=== PATIENT | male | born 1965 | race Caucasian/White ===

== ENCOUNTER 2018-08-31 17:16 | Emergency (ER) | payer MEDICAID ==
[~2018-08-31] VITALS: Ht 185.4 cm; Wt 98.3 kg
[2018-08-31 17:19] VITALS: BP 168/90
[2018-08-31] MEDS ORDERED: CLIN150C2 PO (17:38)
[2018-08-31] MEDS ORDERED: DEC4T PO (17:38)
== END 2018-08-31 18:00 | disposition home or self-care (01) ==
LOC: ER 17:17
DX: J02.9 Acute pharyngitis, unspecified (principal); Z79.2 Long term (current) use of antibiotics; Z79.899 Other long term (current) drug therapy
CPT/HCPCS: 99283

== ENCOUNTER 2018-08-31 20:19 | Emergency (ER) | payer MEDICAID, OTHER ==
[~2018-08-31] VITALS: Ht 170.2 cm; Wt 107.0 kg
[~2018-08-31 20:19] MED LIST: CLIN150C2 PO; DEC4T PO
[2018-08-31] MEDS: dexamethasone sod phosphate 10mg/ml inj PO STA ×2 (20:32→20:39)
[2018-08-31] MEDS ORDERED: dexamethasone sod phosphate 10mg/ml inj IV STA (20:38)
[2018-08-31] MEDS ORDERED: clindamycin oral suspension 75mg/5ml bottle PO STA (21:26)
[2018-08-31] MEDS ORDERED: clindamycin 150mg capsule PO ONE (21:45)
== END 2018-08-31 22:39 | disposition home or self-care (01) ==
LOC: ER 20:19
DX: J02.9 Acute pharyngitis, unspecified (principal); R06.02 Shortness of breath; Z79.2 Long term (current) use of antibiotics; Z79.899 Other long term (current) drug therapy
CPT/HCPCS: 96374; 99284; J1100

== ENCOUNTER 2018-10-19 08:59 | Emergency (ER) | payer MEDICAID, OTHER ==
[~2018-10-19] VITALS: Ht 185.4 cm; Wt 105.1 kg
[~2018-10-19 08:59] MED LIST changes: -CLIN150C2 PO
[2018-10-19 09:20] VITALS: BP 139/79
[2018-10-19] MEDS ORDERED: PENI500T2 PO (09:40)
== END 2018-10-19 09:55 | disposition home or self-care (01) ==
LOC: ER 08:59
DX: J02.9 Acute pharyngitis, unspecified (principal); Z79.899 Other long term (current) drug therapy; Z87.891 Personal history of nicotine dependence
CPT/HCPCS: 99283

== ENCOUNTER 2018-10-23 18:13 | Emergency (ER) | payer MEDICAID ==
[~2018-10-23] VITALS: Ht 185.4 cm; Wt 104.7 kg
[~2018-10-23 18:13] MED LIST changes: +PENI500T2 PO
[2018-10-23 18:24] VITALS: BP 149/75
[2018-10-23] MEDS ORDERED: CLIN300C85 PO (18:26)
== END 2018-10-23 18:39 | disposition home or self-care (01) ==
LOC: ER 18:14
DX: J02.9 Acute pharyngitis, unspecified (principal); Z79.2 Long term (current) use of antibiotics; Z79.899 Other long term (current) drug therapy
CPT/HCPCS: 99283

== ENCOUNTER 2019-12-30 09:43 | Emergency (ER) | payer MEDICAID ==
[~2019-12-30] VITALS: Ht 185.4 cm; Wt 117.5 kg
[~2019-12-30 09:43] MED LIST changes: +CLIN-90 PO; -PENI500T2 PO
[2019-12-30 09:59] VITALS: BP 133/86
[2019-12-30] MEDS ORDERED: ALBU6.7H9 INH (10:45)
[2019-12-30] MEDS ORDERED: BENZ-38 PO (10:45)
[2019-12-30] MEDS ORDERED: PRED20TA PO (10:45)
== END 2019-12-30 10:52 | disposition home or self-care (01) ==
LOC: ER 09:44
DX: J06.9 Acute upper respiratory infection, unspecified (principal); B97.89 Other viral agents as the cause of diseases classified elsewhere; Z98.890 Other specified postprocedural states; Z79.899 Other long term (current) drug therapy
CPT/HCPCS: 71045; 99283

== ENCOUNTER 2022-07-27 09:25 | Emergency (ER) | payer MEDICAID ==
[~2022-07-27] VITALS: Ht 185.4 cm; Wt 127.3 kg
[~2022-07-27 09:25] MED LIST changes: +ALBU6.7H9 INH; -CLIN-90 PO; +CLIN-97 PO
[2022-07-27 10:19] LABS: CLARITY,URINE CLEAR (Clear); COLOR,URINE YELLOW (Yellow); GLUCOSE, URINE NEGATIVE (Neg); KETONES,URINE NEGATIVE (Neg); LEUKOCYTE ESTERASE ,URINE NEGATIVE (Neg); NITRITES, URINE NEGATIVE (Neg); OCCULT BLOOD,URINE TRACE-INTACT (Neg); PH,URINE 5.5 (4.8-8.0); PROTEIN,URINE NEGATIVE (Neg); UROBILINOGEN,URINE 0.2 E.U/dL (0.2-1.0)
[2022-07-27 10:30] LABS: BASOPHILS % (AUTO) 0.7 % (0-1); EOSINOPHILS # (AUTO) 0.2 X10'3 (0-0.9); EOSINOPHILS % (AUTO) 3.8 % (0-6); HEMATOCRIT 42.7 % (42.0-52.0); HEMOGLOBIN 14.8 g/dl (14.0-17.9); LYMPHOCYTES # (AUTO) 2.3 X10'3 (1.1-4.8); LYMPHOCYTES % (AUTO) 43.4 % (21-51); MEAN CORPUSCULAR HEMOGLOBIN 30.9 PG (27.0-31.0); MEAN CORPUSCULAR HGB CONC 34.6 g/dL (33.0-36.5); MEAN CORPUSCULAR VOLUME 89.1 FL (78-98); MEAN PLATELET VOLUME 9.1 FL (7.4-10.4); MONOCYTES # (AUTO) 0.5 X10'3 (0-0.9); MONOCYTES % (AUTO) 8.8 % (2-12); NEUTROPHILS # (AUTO) 2.3 X10'3 (1.8-7.7); NEUTROPHILS % (AUTO) 43.3 % (42-75); PLATELET COUNT 191 X10'3 (140-440); RED BLOOD COUNT 4.79 X10'6 (4.70-6.10); WHITE BLOOD COUNT 5.4 X10'3 (4.5-11.0)
[2022-07-27 10:43] LABS: UA COLLECTION TYPE VOIDED
[2022-07-27 10:45] LABS: SQUAMOUS EPITHELIAL CELL,UR FEW /LPF (FEW); WBC,URINE 0-4 /HPF (0-4)
[2022-07-27 10:45] LABS: ALANINE AMINOTRANSFERASE 77 U/L (12-78); ALBUMIN 4.2 G/DL (3.4-5.0); ALBUMIN/GLOBULIN RATIO 1.3 (1.1-1.5); ALKALINE PHOSPHATASE 59 IU/L (46-116); ANION GAP 8 (8-16); ASPARTATE AMINO TRANSFERASE 45 U/L (10-37); BILIRUBIN,TOTAL 0.6 MG/DL (0.1-1.0); BLOOD UREA NITROGEN 17 MG/DL (7-18); BUN/CREATININE RATIO 14.8 (5.4-32.0); CALCIUM 8.9 MG/DL (8.5-10.1); CHLORIDE 105 MMOL/L (99-107); CREATININE 1.15 MG/DL (0.60-1.10); GLUCOSE 104 MG/DL (70-104); LIPASE 91 U/L (73-393); POTASSIUM 4.4 MMOL/L (3.5-5.1); SODIUM 142 MMOL/L (135-145); TOTAL CARBON DIOXIDE 28.7 MMOL/L (24-32); TOTAL PROTEIN 7.5 G/DL (6.4-8.2); eGFR 66 ML/MIN
[2022-07-27 10:46] LABS: BACTERIA,URINE NONE SEEN /HPF (Neg); RBC,URINE 0-2 /HPF (0-2)
[2022-07-27] MEDS ORDERED: magnesium citrate 296ml oral solution PO ONE (14:50)
[2022-07-27 15:00] VITALS: BP 130/97
--- NOTE | 2022-07-27 15:00 | NUR ---
dr. dial at bedside to discharge pt.
== END 2022-07-27 15:07 | disposition home or self-care (01) ==
LOC: ER 09:26
DX: E86.0 Dehydration (principal); R10.84 Generalized abdominal pain; K59.00 Constipation, unspecified; Z79.2 Long term (current) use of antibiotics; Z79.899 Other long term (current) drug therapy
CPT/HCPCS: 36415; 74018; 80053; 81001; 83690; 85025; 99284